=== PATIENT | female | born 1955 | race Caucasian/White ===

== ENCOUNTER 2017-12-05 09:01 | Day surgery (SDC) | payer OTHER ==
[2017-11-30 15:43] VITALS: BMI 31.1
[~2017-12-05 09:01] MED LIST: LACTATED RINGERS 1,000 ML IV SCH; LIDOCAINE 1% 20 ML VIAL (10MG/ML) FOR IV START INTRADERMA PRN
[2017-12-05 09:39] VITALS: RESP 18; TEMP 97.9
[2017-12-05] MEDS ORDERED: PROPOFOL 10 MG/ML 20 ML VIAL IV ONE (10:07)
--- NOTE | 2017-12-05 10:41 | P.PCN ---
Date of Procedure: 12/05/17 Procedure(s) Performed: BRIEF HISTORY: Patient is a 62-year-old pleasant 61 white female scheduled for an elective colonoscopy as a part of evaluation of prior history of colon polyps. Last colonoscopy was 7 years ago. PROCEDURE PERFORMED: Colonoscopy. PREOPERATIVE DIAGNOSIS: History of colon polyps. IV sedation per Anesthesia. PROCEDURE: After informed consent was obtained, the patient, was brought into the endoscopy unit. IV sedation was administered by Anesthesia under continuous monitoring. Digital rectal examination was normal. Initially the Olympus CF- 160 flexible video colonoscope was then inserted in the rectum, gradually advanced into the cecum without any difficulty. Careful examination was performed as the scope was gradually being withdrawn. Ileocecal valve and the appendiceal orifice were visualized and appeared normal. Prep was excellent. Mucosa of the cecum, ascending colon, transverse colon, descending colon, sigmoid colon, and rectum appeared normal. Scattered sigmoid diverticulosis seen. Retroflexion was performed in the rectum and no lesions were seen. The patient tolerated the procedure well. IMPRESSION: Normal-appearing colon from rectum to cecum with no evidence of colorectal neoplasia . RECOMMENDATIONS: Findings of this examination were discussed with the patient as well as a family. She was advised to have a repeat surveillance colonoscopy in 5 years because of the prior history of colon polyps.
[2017-12-05 10:54] VITALS: BP 125/85; PULSE 58
== END 2017-12-05 11:01 | disposition home or self-care (01) ==
LOC: ORWHC2ENDO 09:01
PROVIDERS: ATTEND Internal Medicine Gastroenterology
DX: Z12.11 Encounter for screening for malignant neoplasm of colon (principal); K57.30 Diverticulosis of large intestine without perforation or abscess without bleeding; Z86.010 Personal history of colon polyps; G47.33 Obstructive sleep apnea (adult) (pediatric); Z79.899 Other long term (current) drug therapy
CPT/HCPCS: J2704; G0105

== ENCOUNTER → 2019-02-24 | Outpatient (CLI) | payer OTHER ==
[2019-02-24 09:43] LABS: Basophils % (A) 1 %; Eosinophils # (A) 0.2 k/uL (0-0.7); Eosinophils % (A) 4 %; HCT 39.1 % (34.0-46.0); Lymphocytes # (A) 1.6 k/uL (1.0-4.8); Lymphocytes % (A) 26 %; MCH 30.6 pg (25.0-35.0); MCHC 33.1 g/dL (31.0-37.0); MCV 92.5 fL (80.0-100.0); Mean Platelet Volume 6.4; Monocytes # (A) 0.3 k/uL (0-1.0); Monocytes % (A) 5 %; Neutrophils # (A) 3.7 k/uL (1.3-7.7); Neutrophils % (A) 63 %; Platelet Count 257 k/uL (150-450); RBC 4.23 m/uL (3.80-5.40); RDW 12.7 % (11.5-15.5); WBC 5.9 k/uL (3.8-10.6)
--- NOTE | 2019-02-24 10:05 | XR ---
EXAMINATION TYPE: XR foot complete RT DATE OF EXAM: 02/24/2019 CLINICAL HISTORY: pain TECHNIQUE: Frontal, lateral and oblique images of the right foot are obtained. COMPARISON: None. FINDINGS: There is no acute fracture/dislocation evident. The joint spaces appear within normal valiente its. The overlying soft tissue appears unremarkable. IMPRESSION: There is no acute fracture or dislocation. ICD 10 NO FRACTURE, INITIAL EVALUATION
[2019-02-24 11:36] LABS: Erythrocyte Sedimentation Rate 23 mm/hr (0-20)
[2019-02-24 16:16] LABS: African American GFR (CKD) 79.4 (60.0-200.0); BUN/Creat Ratio 14.44 Ratio (12.00-20.00); Calcium 10.2 mg/dL (8.7-10.3); Potassium 4.9 mmol/L (3.5-5.5)
== END | disposition home or self-care (01) ==
LOC: LABWHC1 08:49
PROVIDERS: ATTEND Psychiatry & Neurology Neurology
DX: M79.671 Pain in right foot (principal); M54.5 Low back pain; R10.9 Unspecified abdominal pain; M79.10 Myalgia, unspecified site
CPT/HCPCS: 36415; 80048; 82550; 85025; 85652; 86038

== ENCOUNTER → 2022-03-28 | Outpatient (CLI) | payer MEDICARE ==
--- NOTE | 2022-03-28 09:52 | MR ---
EXAMINATION TYPE: MR lumbar spine wo con DATE OF EXAM: 03/28/2022 COMPARISON: NONE HISTORY: LUMBAGO WITH SCIATICA, RIGHT SIDE TECHNIQUE: T1 and T2 axial and sagittal images of the lumbar spine are submitted. FINDINGS: There is no abnormal signal seen within the visualized spinal cord or paraspinal soft tissu es. At T12-L1 there is degenerative disc disease and hypertrophic spurring. No disc herniation or canal s tenosis. Minimal disc bulging posteriorly. No foraminal encroachment. At L1-2 there is a vertebral body hemangioma of L1 and L2. There is moderate to severe degenerative d isc disease with hypertrophic spurring. No obvious disc herniation or canal stenosis. Mild circumfere ntial disc bulging. Neural foramina At L2-3 there is moderate to severe degenerative disc disease with hypertrophic spurring. There is mi ld bilateral foraminal encroachment but no canal stenosis or focal herniation. At L3-4 there is advanced facet arthropathy greater on the right with ligamentum flavum hypertrophy. This results in lateral compression thecal sac. Moderate right and mild left foraminal encroachment. Aeration At L4-5 there is minimal grade 1 anterolisthesis with advanced facet arthropathy. Broad-based circumf erential disc bulging results in mild thecal sac flattening and mild to moderate foraminal encroachme nt and borderline to mild central stenosis. At L5-S1 there is moderate degenerative disc disease and facet arthropathy advanced. Moderate bilater al foraminal enlargement. No canal stenosis or focal herniation. Very mild central disc bulging. IMPRESSION: 1. Multilevel moderate degenerative disc disease with grade 1 anterolisthesis of L4 on L5. There is b orderline to mild canal stenosis L4-L5. 2. Multilevel foraminal encroachment as discussed above. Most marked findings are seen on an L3-L4 th e right with moderate foraminal encroachment and bilaterally at L4-L5 and L5-S1.
== END | disposition home or self-care (01) ==
LOC: RADMRIMAIN 08:25
PROVIDERS: ATTEND Family Medicine
DX: M51.9 Unspecified thoracic, thoracolumbar and lumbosacral intervertebral disc disorder (principal); M54.41 Lumbago with sciatica, right side
CPT/HCPCS: 72148

== ENCOUNTER 2022-12-27 08:45 | Day surgery (SDC) | payer MEDICARE ==
[~2022-12-27 08:45] MED LIST changes: +LIDOCAINE 1% (10MG/ML) FOR IV START INTRADERMA PRN; -LIDOCAINE 1% 20 ML VIAL (10MG/ML) FOR IV START INTRADERMA PRN
[2022-12-27 09:18] VITALS: TEMP 98.7
[2022-12-27] MEDS ORDERED: LIDOCAINE 2% INJ 20 MG/ML (2 ML VIAL) ONE (09:19)
[2022-12-27] MEDS ORDERED: PROPOFOL 10 MG/ML 20 ML VIAL IV ONE (09:19)
--- NOTE | 2022-12-27 09:37 | P.PCN ---
Date of Procedure: 12/27/22 Procedure(s) Performed: BRIEF HISTORY: Patient is a 67-year-old pleasant White white female scheduled for an elective colonoscopy as a part of screening for colon cancer and strong family history of colon cancer. Her 8 maternal uncles were diagnosed with colon cancer between ages 40 and 60. PROCEDURE PERFORMED: Colonoscopy with biopsy. PREOPERATIVE DIAGNOSIS: Screening for colon cancer and family history of colon cancer. IV sedation per Anesthesia. PROCEDURE: After informed consent was obtained, the patient, was brought into the endoscopy unit. IV sedation was administered by Anesthesia under continuous monitoring. Digital rectal examination was normal. Initially the Olympus CF-160 flexible video colonoscope was then inserted in the rectum, gradually advanced into the cecum without any difficulty. Careful examination was performed as the scope was gradually being withdrawn. Ileocecal valve and the appendiceal orifice were visualized and appeared normal. Prep was excellent. Mucosa of the cecum, ascending colon, transverse colon with normal. The descending colon there was a 3 mm sessile polyp removed by cold biopsy. Rest of the, descending colon, sigmoid colon, and rectum appeared normal. Scattered left-sided diverticulosis. Retroflexion was performed in the rectum and no lesions were seen. The patient tolerated the procedure well. IMPRESSION: 3 mm sessile ascending colon polyp status post cold biopsy Scattered sigmoid diverticulosis RECOMMENDATIONS: Findings of this examination were discussed with the patient as well as a family. She was advised to follow with the biopsy results and have a repeat colonoscopy in 5 years from now because of the strong family history of colon cancer..
[2022-12-27 09:50] VITALS: RESP 18
[2022-12-27 10:09] VITALS: BP 118/72; PULSE 68
== END 2022-12-27 10:28 | disposition home or self-care (01) ==
LOC: ORWHC2ENDO 08:45
PROVIDERS: ATTEND Internal Medicine Gastroenterology
DX: Z12.11 Encounter for screening for malignant neoplasm of colon (principal); D12.4 Benign neoplasm of descending colon; E78.5 Hyperlipidemia, unspecified; K57.30 Diverticulosis of large intestine without perforation or abscess without bleeding; Z80.0 Family history of malignant neoplasm of digestive organs; Z98.891 History of uterine scar from previous surgery; Z79.899 Other long term (current) drug therapy
CPT/HCPCS: 88305; 45380; J2704; J2001